=== PATIENT | female | born 1955 | race Caucasian/White ===

== ENCOUNTER → 2017-05-19 | Outpatient (CLI) | payer BC ==
--- NOTE | 2017-05-19 10:13 | CT ---
EXAMINATION TYPE: CT chest w con DATE OF EXAM: 05/19/2017 COMPARISON: NONE HISTORY: Breast Cancer Staging CT DLP: 213.10 mGycm Automated exposure control for dose reduction was used. CONTRAST: CT scan of the chest is performed with IV Contrast, patient injected with 100 ml mL of Omnipaque 300. FINDINGS: LUNGS: Subsegmental changes are seen involving both lung bases compatible with scar or atelectasis. N o sizable pneumothorax. No suspicious pulmonary nodules. No pleural effusion or pneumothorax. MEDIASTINUM: Heart is prominent in size. There is mild aneurysmal dilation of the ascending aorta jourdan suring 3.9 x 3.9 cm. Mild atherosclerotic changes are seen. Shotty adenopathy within the axilla. No p athologic sized lymph nodes identified. Shotty adenopathy in the mediastinum. . OTHER: There are postbiopsy changes involving the right breast with skin thickening and soft tissue density. There are approximately 6 hepatic lesions which are seen scattered throughout the lobes of the liver. The largest is seen near the dome of the liver measuring 1.2 cm and 15 Hounsfield units suggestive o f cyst. Other lesions are too small to characterize and should be correlated with abdominal CT. Large right renal cyst is a simple appearance measuring 5.3 cm and 5 Hounsfield units. Thyroid gland is enlarged correlate for thyroiditis. Localized lucency within the mid thoracic vertebral body noted may be related to hemangioma. Recommend bone scan. There is a 50% to 60% stenosis involving the prox imal superior mesenteric artery. IMPRESSION: 1. No evidence of pulmonary nodule or pathologic adenopathy. 2. Hepatic lesions measuring a total of 6. However, the liver is only partially included. The largest measures 15 Hounsfield units at the dome of the liver suggestive of a simple cyst. Additional lesion s are too small to characterize would recommend a follow-up CT of the abdomen and pelvis for further evaluation. 3. There is a 50% stenosis involving the SMA. 4. Single lucent lesion in the mid thoracic vertebral segment. Differential diagnosis would include a hemangioma. Recommend follow-up bone scan or MRI for further assessment
== END | disposition home or self-care (01) ==
LOC: RADBDWWP 08:55
PROVIDERS: ATTEND Internal Medicine Medical Oncology
DX: C50.111 Malignant neoplasm of central portion of right female breast (principal); I74.11 Embolism and thrombosis of thoracic aorta
CPT/HCPCS: 71260; Q9967

== ENCOUNTER → 2017-06-04 | Outpatient (CLI) | payer BC ==
--- NOTE | 2017-06-04 14:32 | BD ---
EXAMINATION TYPE: MG DEXA axial skeleton. DATE OF EXAM: 06/04/2017 COMPARISON: NONE CLINICAL HISTORY: Height: 5 FT 5 IN Weight: 157 FRAX RISK QUESTIONS: Alcohol (3 or more units per day): NO Family History (Parent hip fracture): NO Glucocorticoids (More than 3mos): NO (Ex: prednisone, prednisolone, methylprednisolone, dexamethasone, and hydrocortisone). History of Fracture in Adulthood: NO Secondary Osteoporosis: 1. Type 1 Diabetes: NO 2. Hyperthyroidism: NO 3. Menopause before 45: YES 4. Malnutrition: NO 5. Chronic liver disease: NO Rheumatoid Arthritis: NO Current Tobacco Use: NO RISK FACTORS HISTORY OF: Active: YES Postmenopausal woman: AGE 40 MEDICATIONS: Additional Medications: BENAZEP/HCTZ, VIT D, CALCIUM Additional History: BREAST CA 2017 RADIATION EXAM MEASUREMENTS: Bone mineral densitometry was performed using the [employer] System. Bone mineral density as measured about the Lumbar spine is: ----- L1-L4(G/cm2): 1.072 T Score Values are as follows: ----- L2: -1.6 ----- L3: -1.0 ----- L4: -0.2 ----- L1-L4: -0.9 BASELINE Bone mineral density about the R hip (g/cm2): 0.751 Bone mineral density about the L hip (g/cm2): 0.760 T Score values are as follows: -----R Neck: -2.1 -----L Neck: -2.0 -----R Total: -1.4 -----L Total: -1.3 BASELINE IMPRESSION: Osteopenia (T Score between -2.5 and -1). There is slightly increased risk of fracture and the patient may be considered for treatment. Re-Screen 2-5 years. NOTE: T-SCORE=SD OF THE YOUNG ADULT MEAN.
== END | disposition home or self-care (01) ==
LOC: RADBDWWP 09:00
PROVIDERS: ATTEND Internal Medicine Medical Oncology
DX: M85.80 Other specified disorders of bone density and structure, unspecified site (principal); C50.111 Malignant neoplasm of central portion of right female breast
CPT/HCPCS: 77080

== ENCOUNTER → 2017-06-11 | Outpatient (CLI) | payer BC ==
[2017-06-11 15:47] LABS: Albumin 4.4 g/dL (3.5-5.0); Potassium 4.3 mmol/L (3.5-5.1); Total Bilirubin 0.2 mg/dL (0.2-1.3); Total Protein 7.4 g/dL (6.3-8.2)
== END | disposition home or self-care (01) ==
LOC: LABWHC1 15:01
PROVIDERS: ATTEND Internal Medicine Medical Oncology
DX: C50.411 Malignant neoplasm of upper-outer quadrant of right female breast (principal)
CPT/HCPCS: 36415; 80053; 82306

== ENCOUNTER → 2017-07-05 | Outpatient (CLI) | payer BC ==
--- NOTE | 2017-07-06 21:49 | PE ---
EXAMINATION TYPE: PET CT fusion skull to thigh DATE OF EXAM: 07/05/2017 COMPARISON: CT chest 05/19/2017 Prior PET/CT: None HISTORY: Malignant neoplasm upper outer quadrant right breast TECHNIQUE: Following the intravenous administration of 14.14 mCi of F-18 FDG, whole body images are performed from the skull base to the midthigh. Images are reviewed on the computer in the coronal, a xial, and sagittal planes. Reconstructed rotating images are created on independent workstation and reviewed on the computer. A localization and attenuation correction CT is performed in conjunction with the PET scan. DLP: 376.3 mGycm SCAN: Initial Blood glucose: 99 mg/dL Average Mediastinum SUV: 1.73 Average Liver SUV: 1.47 FINDINGS: NECK: No abnormal uptake THORAX: No suspicious uptake. There is some mild increased signal within the postsurgical site right breast with an SUV value 1.38. This can be compatible postsurgical inflammatory change. No suspicious uptake within the right axillary region is evident. There is some mild increased signal within the r ight infrahilar region. This is intermediate signal 1.9 and 1.8 cm. Image 84 and 93. ABDOMEN: No abnormal uptake PELVIS: No abnormal uptake OSSEOUS STRUCTURES: There is a sclerotic lesion within the medial right sacral ala. Image 200. Sclero tic metastasis is not excluded. Abnormal uptake however is not identified. LOCALIZATION CT: The heart is somewhat prominent. There is likely a cyst within the liver. Couple sma ller cysts are near the ligamentum teres. These are hypointense uptake suggesting cyst. There is a la rge cyst superior pole right kidney measuring 4.5 cm and 11 Hounsfield units. COMPARISON: No significant changes IMPRESSION: 1. No suspicious changes for metastatic disease. No focal abnormal areas of uptake identified. 2. Inflammatory-type lymph nodes may be present in the right infrahilar region. 3. Sclerotic solitary lesion within the right sacral ala. Sclerotic metastasis is considered less lik coleman.
== END | disposition home or self-care (01) ==
LOC: RADPETMAIN 08:28
PROVIDERS: ATTEND Radiology Radiation Oncology
DX: C50.411 Malignant neoplasm of upper-outer quadrant of right female breast (principal); M53.3 Sacrococcygeal disorders, not elsewhere classified
CPT/HCPCS: 78815; A9552

== ENCOUNTER → 2019-01-19 | Outpatient (CLI) | payer BC ==
--- NOTE | 2019-01-19 10:03 | CT ---
EXAMINATION TYPE: CT chest w con DATE OF EXAM: 01/19/2019 COMPARISON: PET CT 07/15/[address] 05/19/2017 HISTORY: 63-year-old female Hx of tobacco use and Breast CA TECHNIQUE: Contiguous axial scanning of the chest after the administration of 100 mL of Isovue 300. Coronal/sagittal reconstructions performed. CT DLP: 170.2mGycm. Automatic exposure control utilized for a dose reduction. FINDINGS: Post lumpectomy changes right breast. Heart upper limits of normal in size without pericardial effusion. Scattered mild coronary vessel nishant cifications are present. Borderline to mild aneurysm ascending aorta at 4.0 cm versus 3.8 cm on 05/19/2017. Large caliber to the main right pulmonary artery at 2.7 cm may reflect underlying pulmonary arterial hypertension. No thoracic lymphadenopathy by CT size criteria. Evaluation of the lungs shows mild biapical pleural parenchymal scarring. Some minimal subpleural ret iculations anterior right midlung likely post therapy change. Strandy atelectasis at the peripheral l eft base. Tiny emphysematous cyst in the left upper lobe, axial image 20. No consolidation or pleural effusion. Scattered hepatic hypodensities, largest measuring 1.8 cm are unchanged from 07/05/2017 suggestive of c ysts. Large right renal cyst measuring 5.7 cm is also redemonstrated. Bones: Mild degenerative disc disease lower thoracic spine. No osseous destructive process. IMPRESSION: 1. Stable post lumpectomy changes on the right. 2. No evidence for local recurrence or metastatic disease in the chest. 3. Very minimal early emphysematous change. Possible underlying pulmonary arterial hypertension. 4. Borderline to mild ascending aortic aneurysm at 4.0 cm versus 3.8 cm on 05/19/2017.
== END | disposition home or self-care (01) ==
LOC: RADCTMAIN 08:26
PROVIDERS: ATTEND Internal Medicine Medical Oncology
DX: J43.9 Emphysema, unspecified (principal); I71.2 Thoracic aortic aneurysm, without rupture; I74.10 Embolism and thrombosis of unspecified parts of aorta; F17.200 Nicotine dependence, unspecified, uncomplicated; Z90.11 Acquired absence of right breast and nipple
CPT/HCPCS: 71260; Q9967

== ENCOUNTER → 2020-01-26 | Outpatient (CLI) | payer MEDICARE, OTHER ==
--- NOTE | 2020-01-26 09:44 | CT ---
EXAMINATION TYPE: CT chest w con DATE OF EXAM: 01/26/2020 COMPARISON: Prior chest CT January 19, 2019 and older study May 19, 2017. PET/CT July 05, 2017 HISTORY: History of tobacco use, access ascending aorta CT DLP: 485 mGycm. Automated Exposure Control for Dose Reduction was Utilized. TECHNIQUE: CT scan of the thorax is performed following with IV Contrast, patient injected with 80 m L of Isovue 300. FINDINGS: LUNGS: There is stable mild biapical pleural/parenchymal scarring. No suspicious new nodules or micheline s. No pleural effusion or pneumothorax seen bilaterally. Tracheobronchial tree remains patent. MEDIASTINUM: There are no new greater than 1 cm hilar or mediastinal lymph nodes. No pericardial ef fusion is seen. Heart size stable and upper limits of normal in size. Coronary artery calcification redemonstrated. Main pulmonary artery measures 2.8 cm in diameter axial image 25. Adjacent ascending aorta measures up to 3.8 cm in diameter. No significant change from prior studies. OTHER: Surgical clips right breast with scar tissue are redemonstrated. Heterogeneous mildly enlarged thyroid gland with calcified lower pole right thyroid nodule anteriorly redemonstrated visualized li sara shows scattered simple-appearing thin-walled cysts with larger thin-walled cysts upper pole of th e right kidney redemonstrated. Accessory renal artery incidentally noted. Stable eccentric plaque cau sing narrowing near 50% in the SMA sagittal image 54. Stable small lucent lesion right T9 vertebra co justino image 57 favored benign. IMPRESSION: No acute pulmonary process. Stable 3.8 cm ascending aortic ectasia or mild aneurysm.
--- NOTE | 2020-01-26 14:25 | BD ---
EXAMINATION TYPE: Axial Bone Density DATE OF EXAM: 01/26/2020 COMPARISON: NONE CLINICAL HISTORY: Height: 65 Weight: 155.4 FRAX RISK QUESTIONS: Alcohol (3 or more units per day): no Family History (Parent hip fracture): no Glucocorticoids (More than 3mos): no (Ex: prednisone, prednisolone, methylprednisolone, dexamethasone, and hydrocortisone). History of Fracture in Adulthood: no Secondary Osteoporosis: 1. Type 1 Diabetes: no 2. Hyperthyroidism: no 3. Menopause before 45: yes 4. Malnutrition: no 5. Chronic liver disease: no Rheumatoid Arthritis: no Current Tobacco Use: yes RISK FACTORS HISTORY OF: Family History of Osteoporosis: no Active: yes Diet low in dairy products/other sources of calcium: no Postmenopausal woman: age 40 Lost more than 2 inches in height since high school: no MEDICATIONS: benazepril, anastrozole Additional History: EXAM MEASUREMENTS: Bone mineral densitometry was performed using the [employer] System. Bone mineral density as measured about the Lumbar spine is: ----- L1-L4(G/cm2): 1.011 T Score Values are as follows: ----- L2: -2.1 ----- L3: -1.7 ----- L4: -0.7 ----- L1-L4: -1.4 Bone mineral density has: decreased -6.0 % since study of: 06.04.2017 Bone mineral density about the R hip (g/cm2): 0.707 Bone mineral density about the L hip (g/cm2): 0.755 T Score values are as follows: -----R Neck: -2.4 -----L Neck: -2.0 -----R Total: -1.6 -----L Total: -1.3 Bone mineral density has: decreased -1.4 % since study of: 06.04.2017 IMPRESSION: Osteopenia (T Score between -2.5 and -1). There is slightly increased risk of fracture and the patient may be considered for treatment. Re-Screen 2-5 years. NOTE: T-SCORE=SD OF THE YOUNG ADULT MEAN.
== END | disposition home or self-care (01) ==
LOC: RADBDWWP 07:45
PROVIDERS: ATTEND Internal Medicine Medical Oncology
DX: C50.111 Malignant neoplasm of central portion of right female breast (principal); M85.80 Other specified disorders of bone density and structure, unspecified site; I74.10 Embolism and thrombosis of unspecified parts of aorta; M85.9 Disorder of bone density and structure, unspecified
CPT/HCPCS: 82565; 84520; 77080; 71260; 36415; Q9967

== ENCOUNTER → 2021-01-31 | Outpatient (CLI) | payer MEDICARE, OTHER ==
--- NOTE | 2021-02-01 14:28 | CT ---
EXAMINATION TYPE: CT chest w con DATE OF EXAM: 01/31/2021 COMPARISON: 01/26/2020 HISTORY: Breast Cancer CT DLP: 150.30 mGycm, Automated exposure control for dose reduction was used. CONTRAST: Performed injected with 100 ml mL of Isovue 300. TECHNIQUE: Axial images were obtained at 5 mm thick sections. Reconstructed images are reviewed on [employer] computer in the coronal plane. FINDINGS: Portion of the thyroid visualized is somewhat prominent. No suspicious lung nodules or focal infiltrates are present. No enlarged mediastinal or hilar adenopathy is evident. The ascending aorta diameter at the level o f the main pulmonary artery is 3.7 cm. The main pulmonary artery diameter at the bifurcation is 3.[address] sections are obtained through the upper abdomen. There is a cyst within the right lobe 0.9 cm. IMPRESSIONS: 1. No suspicious pulmonary process. 2. Hepatic cyst
== END | disposition home or self-care (01) ==
LOC: RADCTMAIN 08:10
PROVIDERS: ATTEND Internal Medicine Medical Oncology
DX: C50.111 Malignant neoplasm of central portion of right female breast (principal); K76.89 Other specified diseases of liver
CPT/HCPCS: 82565; 84520; 71260; 36415; Q9967

== ENCOUNTER → 2021-02-21 | Outpatient (CLI) | payer MEDICARE, OTHER ==
--- NOTE | 2021-02-21 14:32 | CT ---
EXAMINATION TYPE: CT abdomen w con DATE OF EXAM: 02/21/2021 COMPARISON: None HISTORY: liver disease CT DLP: 814 mGycm CONTRAST: CT scan of the abdomen is performed with Oral Contrast and with IV Contrast, patient injected with 10 0 mL of Isovue 300. FINDINGS: LUNG BASES-: No visible nodule. No infiltrate. LIVER/GB: No calcified gallstones. Mild hepatic steatosis noted. Scattered hepatic cysts seen measu ring up to 1.7 cm. Biliary tree is of normal caliber. PANCREAS: No inflammation. No distinct mass. SPLEEN: No splenic enlargement. No lesion seen. ADRENALS: No nodule. No thickening. KIDNEYS/BLADDER: No hydronephrosis. No nephrolithiasis. Simple cyst upper pole right kidney measure s 5.2 cm. Urinary bladder grossly unremarkable. BOWEL: Normal appendix. Normal bowel caliber. No inflammation. LYMPH NODES: No greater than 1cm abdominal or pelvic lymph nodes are appreciated. AORTA: No significant abnormality. OSSEOUS STRUCTURES: No significant abnormality is seen. OTHER: No significant additional abnormality is seen. IMPRESSION: 1. Renal and hepatic cysts. 2. Mild fatty hepatic infiltration.
== END | disposition home or self-care (01) ==
LOC: RADCTMAIN 12:21
PROVIDERS: ATTEND Family Medicine
DX: K76.89 Other specified diseases of liver (principal); N28.1 Cyst of kidney, acquired
CPT/HCPCS: 82565; 84520; 74160; 36415; Q9967

== ENCOUNTER → 2021-07-26 | Outpatient (CLI) | payer MEDICARE ==
[2021-07-26 14:30] LABS: Basophils # (A) 0.04 X 10*3/uL (0.00-0.10); Basophils % (A) 0.8 %; Eosinophils # (A) 0.12 X 10*3/uL (0.04-0.35); Eosinophils % (A) 2.3 %; HCT 42.4 % (37.2-46.3); HGB 13.3 g/dL (12.0-15.0); Immature Grans, Automated 0.4 %; Lymphocytes # (A) 1.58 X 10*3/uL (0.90-5.00); Lymphocytes % (A) 29.6 %; MCHC 31.4 g/dL (32.0-37.0); Mean Platelet Volume 10.6 fL (9.5-12.2); Monocytes # (A) 0.56 X 10*3/uL (0.20-1.00); Monocytes % (A) 10.5 %; NRBC Per 100 WBC 0 /100 WBCS (0.0-0.0); Neutrophils # (A) 3.01 X 10*3/uL (1.80-7.70); Neutrophils % (A) 56.4 %; Platelet Count 259 X 10*3/uL (140-440); RBC 4.93 X 10*6/uL (4.10-5.20); RDW 14.3 % (11.5-14.5); WBC 5.33 X 10*3/uL (4.50-10.00)
[2021-07-26 16:48] LABS: ALT 20 U/L (8-44); AST 21 U/L (13-35); Albumin 4.8 g/dL (3.8-4.9); Albumin/Globulin Ratio 1.92 (1.60-3.17); Alkaline Phosphatase 78 U/L (41-126); Calcium 10.1 mg/dL (8.7-10.3); Carbon Dioxide 26.8 mmol/L (20.0-27.5); Chloride 102 mmol/L (96-109); Chol/HDL Ratio 2.44 Ratio; Globulin 2.5 g/dL (1.6-3.3); Glucose 99 mg/dL (70-110); Non-African American GFR(CKD) 58.7 (60.0-200.0); Potassium 4.7 mmol/L (3.5-5.5); Sodium 139 mmol/L (135-145); Total Protein 7.3 g/dL (6.2-8.2); VLDL Calculation 14.06 mg/dL (5.00-40.00)
== END | disposition home or self-care (01) ==
LOC: LABWHC1 09:28
PROVIDERS: ATTEND Family Medicine
DX: I10 Essential (primary) hypertension (principal)
CPT/HCPCS: 36415; 80053; 80061; 85025

== ENCOUNTER → 2022-02-05 | Outpatient (CLI) | payer MEDICARE ==
--- NOTE | 2022-02-05 16:03 | BD ---
EXAMINATION TYPE: Axial Bone Density DATE OF EXAM: 02/05/2022 COMPARISON: 01/26/2020 CLINICAL HISTORY: 66 years old Female. ICD-10 CODE: Z78.0 ASYM MENOPAUSAL STATE Height: 64.25 Weight: 142 FRAX RISK QUESTIONS: Family History (Parent hip fracture): no History of Fracture in Adulthood: no Secondary Osteoporosis: no Current Tobacco Use: yes RISK FACTORS HISTORY OF: Family History of Osteoporosis: no Active: yes Diet low in dairy products/other sources of calcium: no Postmenopausal woman: yes Lost more than 2 inches in height since high school: no MEDICATIONS: Additional Medications: yes calcium, vit d , hbp meds, cholesterol meds tamoxifen Additional History: yes rt breast cancer 2017 ,radiation EXAM MEASUREMENTS: Bone mineral densitometry was performed using the [employer] System. Bone mineral density as measured about the Lumbar spine is: ----- L1-L4(G/cm2): 0.967 T Score Values are as follows: ----- L1: -2.0 ----- L2: -2.8 ----- L3: -2.3 ----- L4: -0.2 ----- L1-L4: -1.8 Bone mineral density has: Decreased -4.4% since study of: 01/26/2020 Bone mineral density about the R hip (g/cm2): 0.784 Bone mineral density about the L hip (g/cm2): 0.823 T Score values are as follows: -----R Neck: -2.5 -----L Neck: -2.2 -----R Total: -1.8 -----L Total: -1.5 Bone mineral density has: Decreased -2.3% since study of: 01/26/2020 FRAX%s: The graph provided illustrates a 15.2% chance for a major osteoporotic fx and a 5.4% chance f or the hips probability for fx in 10 years time. IMPRESSION: Osteopenia (T Score between -2.5 and -1). There is slightly increased risk of fracture and the patient may be considered for treatment. Re-Screen 2-5 years. NOTE: T-SCORE=SD OF THE YOUNG ADULT MEAN.
== END | disposition home or self-care (01) ==
LOC: RADBDWWP 12:58
PROVIDERS: ATTEND Family Medicine
DX: M85.89 Other specified disorders of bone density and structure, multiple sites (principal); Z78.0 Asymptomatic menopausal state
CPT/HCPCS: 77080

== ENCOUNTER → 2022-02-20 | Outpatient (CLI) | payer MEDICARE ==
[2022-02-20 18:23] LABS: African American GFR (CKD) 65.9 (60.0-200.0); Albumin 4.6 g/dL (3.8-4.9); Albumin/Globulin Ratio 1.73 (1.60-3.17); BUN/Creat Ratio 20.78 Ratio (12.00-20.00); Blood Urea Nitrogen 21.2 mg/dL (9.0-27.0); Calcium 9.8 mg/dL (8.7-10.3); Carbon Dioxide 25.2 mmol/L (20.0-27.5); Globulin 2.6 g/dL (1.6-3.3); Non-African American GFR(CKD) 56.9 (60.0-200.0); Potassium 4.1 mmol/L (3.5-5.5); Total Bilirubin 0.5 mg/dL (0.30-1.20); Total Protein 7.2 g/dL (6.2-8.2)
== END | disposition home or self-care (01) ==
LOC: LABWHC1 11:10
PROVIDERS: ATTEND Family Medicine
DX: M81.0 Age-related osteoporosis without current pathological fracture (principal)
CPT/HCPCS: 36415; 80053

== ENCOUNTER → 2023-03-20 | Outpatient (CLI) | payer MEDICARE ==
--- NOTE | 2023-03-20 11:00 | XR ---
3 view lumbar spine. DATE: 03/20/2023. COMPARISON: None available. MEDICAL HISTORY: Low back pain. IMPRESSION: The vertebral bodies are well aligned without evidence of fracture, subluxation or dislocation. The vertebral body heights are maintained. There is moderate degenerative disc space narrowing at L5-S1. Moderate vascular calcification is seen throughout the abdominal aorta.
== END | disposition home or self-care (01) ==
LOC: RADXRMAIN 08:25
PROVIDERS: ATTEND Family Medicine
DX: M51.37 Other intervertebral disc degeneration, lumbosacral region (principal)
CPT/HCPCS: 72100

== ENCOUNTER → 2023-09-11 | Outpatient (CLI) | payer MEDICARE ==
[2023-09-11 15:41] LABS: Basophils # (A) 0.04 X 10*3/uL (0.00-0.10); Basophils % (A) 0.8 %; Eosinophils # (A) 0.23 X 10*3/uL (0.04-0.35); Eosinophils % (A) 4.4 %; HCT 42.5 % (37.2-46.3); HGB 13.2 g/dL (12.0-15.0); Lymphocytes # (A) 1.46 X 10*3/uL (0.90-5.00); Lymphocytes % (A) 28.2 %; MCH 27.3 pg (27.0-32.0); MCHC 31.1 g/dL (32.0-37.0); MCV 87.8 FL (80.0-97.0); Mean Platelet Volume 10.8 FL (9.5-12.2); Monocytes # (A) 0.55 X 10*3/uL (0.20-1.00); Monocytes % (A) 10.6 %; NRBC Per 100 WBC 0 X 10*3/uL (0.00-0.01); Neutrophils # (A) 2.87 X 10*3/uL (1.80-7.70); Neutrophils % (A) 55.6 %; Platelet Count 258 X 10*3/uL (140-440); RBC 4.84 X 10*6/uL (4.10-5.20); RDW 14.1 % (11.5-14.5); WBC 5.17 X 10*3/uL (4.50-10.00)
[2023-09-11 16:08] LABS: ALT 54 U/L (8-44); AST 30 U/L (13-35); Albumin 4.6 g/dL (3.8-4.9); Albumin/Globulin Ratio 1.77 Ratio (1.60-3.17); Alkaline Phosphatase 47 U/L (41-126); BUN/Creat Ratio 18.33 Ratio (12.00-20.00); Carbon Dioxide 25.5 mmol/L (21.6-31.8); Chloride 108 mmol/L (96-109); Chol/HDL Ratio 2.89 Ratio; Globulin 2.6 g/dL (1.6-3.3); Glucose 97 mg/dL (70-110); LDL Cholesterol,Calculated 98.8 mg/dL (0.0-131.0); Potassium 4.7 mmol/L (3.5-5.5); Sodium 147 mmol/L (135-145); Total Bilirubin 0.4 mg/dL (0.3-1.2); Total Protein 7.2 g/dL (6.2-8.2)
== END | disposition home or self-care (01) ==
LOC: LABWHC1 09:44
PROVIDERS: ATTEND Family Medicine
DX: E78.5 Hyperlipidemia, unspecified (principal); M81.0 Age-related osteoporosis without current pathological fracture
CPT/HCPCS: 36415; 80053; 80061; 82306; 85025

== ENCOUNTER → 2023-11-06 | Outpatient (CLI) | payer MEDICARE | END | disposition home or self-care (01) | LOC: LABPRL 07:32 | PROVIDERS: ATTEND Family Medicine | DX: N28.9 Disorder of kidney and ureter, unspecified | CPT/HCPCS: 80053; 82248 ==

== ENCOUNTER → 2024-04-01 | Outpatient (CLI) | payer MEDICARE ==
[2024-04-01 15:56] LABS: Basophils # (A) 0.06 X 10*3/uL (0.00-0.10); Basophils % (A) 0.9 %; Eosinophils # (A) 0.21 X 10*3/uL (0.04-0.35); HCT 45.7 % (37.2-46.3); HGB 13.9 g/dL (12.0-15.0); Lymphocytes # (A) 1.85 X 10*3/uL (0.90-5.00); Lymphocytes % (A) 26.8 %; MCH 26.4 pg (27.0-32.0); MCHC 30.4 g/dL (32.0-37.0); MCV 86.9 FL (80.0-97.0); Mean Platelet Volume 10.5 FL (9.5-12.2); Monocytes # (A) 0.71 X 10*3/uL (0.20-1.00); Monocytes % (A) 10.3 %; NRBC Per 100 WBC 0 X 10*3/uL (0.00-0.01); Neutrophils % (A) 57.8 %; Platelet Count 330 X 10*3/uL (140-440); RBC 5.26 X 10*6/uL (4.10-5.20); RDW 14.4 % (11.5-14.5); WBC 6.91 X 10*3/uL (4.50-10.00)
[2024-04-01 16:06] LABS: ALT 21 U/L (8-44); AST 26 U/L (13-35); Albumin 4.5 g/dL (3.8-4.9); Albumin/Globulin Ratio 1.61 Ratio (1.60-3.17); Alkaline Phosphatase 63 U/L (41-126); Blood Urea Nitrogen 18.7 mg/dL (9.0-27.0); Calcium 10.1 mg/dL (8.7-10.3); Carbon Dioxide 25.6 mmol/L (21.6-31.8); Chloride 103 mmol/L (96-109); Chol/HDL Ratio 2.83 Ratio; Globulin 2.8 g/dL (1.6-3.3); Glucose 95 mg/dL (70-110); LDL Cholesterol,Calculated 97.6 mg/dL (0.0-131.0); Potassium 4.9 mmol/L (3.5-5.5); Sodium 140 mmol/L (135-145); Total Bilirubin 0.5 mg/dL (0.3-1.2); Total Protein 7.3 g/dL (6.2-8.2)
== END | disposition home or self-care (01) ==
LOC: LABWHC1 09:48
PROVIDERS: ATTEND Family Medicine
DX: I10 Essential (primary) hypertension (principal)
CPT/HCPCS: 36415; 80053; 80061; 85025